=== PATIENT | female | born 1990 | race African-American/Black ===

== ENCOUNTER 2017-07-18 20:28 | Emergency (ER) | payer SELFPAY ==
[2017-07-18] MEDS ORDERED: BUTALB/ACETAMINOPHEN/CAFFEINE 1 TAB EACH PO ONE (23:08)
[2017-07-18] MEDS ORDERED: KETOROLAC TROMETHAMINE 60 MG/2 ML SDV IM ONE (23:08)
[2017-07-18] MEDS ORDERED: ONDANSETRON ODT 4 MG TAB (6 TAB/ER DISP) PO PRN (23:09)
--- NOTE | 2017-07-18 23:11 | ER Document Report ---
ED General - General Chief Complaint: Headache Stated Complaint: HEADACHE Time Seen by Provider: 07/18/17 22:57 TRAVEL OUTSIDE OF THE [place] IN LAST 30 DAYS: No - HPI Patient complains to provider of: Headache Notes: Patient coming in for a headache. Patient states left-sided headache ongoing for approximate last 12 hours similar to her migraine headaches in the past. Patient denies taking medication for headache prior to visit here to the ER. Patient denies any trauma denies any fevers chills nausea vomiting diarrhea. Patient is resting company upon my evaluation no signs of any obvious distress. - Related Data Allergies/Adverse Reactions: No Known Allergies Allergy (Verified 12/20/11 11:55) Past Medical History - Social History Smoking Status: Unknown if Ever Smoked Family History: Reviewed & Not Pertinent Patient has suicidal ideation: No Patient has homicidal ideation: No Neurological Medical History: Reports: Hx Migraine Renal/ Medical History: Denies: Hx Peritoneal Dialysis Past Surgical History: Reports: Hx Orthopedic Surgery - nose surgery - Immunizations Hx Diphtheria, Pertussis, Tetanus Vaccination: Yes Review of Systems - Review of Systems Constitutional: No symptoms reported EENT: No symptoms reported Cardiovascular: No symptoms reported Respiratory: No symptoms reported Gastrointestinal: No symptoms reported Genitourinary: No symptoms reported Female Genitourinary: No symptoms reported Musculoskeletal: No symptoms reported Skin: No symptoms reported Hematologic/Lymphatic: No symptoms reported Neurological/Psychological: Headaches -: Yes All other systems reviewed and negative Physical Exam - Vital signs Interpretation: Normal - General General appearance: Appears well, Alert - HEENT Head: Normocephalic, Atraumatic Eyes: Normal Pupils: PERRL - Respiratory Respiratory status: No respiratory distress Chest status: Nontender Breath sounds: Normal Chest palpation: Normal - Cardiovascular Rhythm: Regular Heart sounds: Normal auscultation Murmur: No - Abdominal Inspection: Normal Distension: No distension Bowel sounds: Normal Tenderness: Nontender Organomegaly: No organomegaly - Back Back: Normal, Nontender - Extremities General upper extremity: Normal inspection, Nontender, Normal color, Normal ROM , Normal temperature General lower extremity: Normal inspection, Nontender, Normal color, Normal ROM , Normal temperature, Normal weight bearing. No: Buck's sign - Neurological Neuro grossly intact: Yes Cognition: Normal Orientation: AAOx4 [place] Coma Scale Eye Opening: Spontaneous Manuel Coma Scale Verbal: Oriented [place] Coma Scale Motor: Obeys Commands [place] Coma Scale Total: 15 Speech: Normal Motor strength normal: LUE, RUE, LLE, RLE Sensory: Normal - Psychological Associated symptoms: Normal affect, Normal mood - Skin Skin Temperature: Warm Skin Moisture: Dry Skin Color: Normal Course - Re-evaluation Re-evalutation: 07/19/17 04:11 The patient presents with headache without signs of CLINICAL OPERATIONS LEADER bleed, stroke, infection , or other serious etiology. The patient is neurologically intact. Given the extremely low risk of these diagnoses further testing and evaluation for these possibilities does not appear to be indicated at this time. The patient has been instructed to return if the symptoms worsen or change in any way.. - EKG Interpretation by Ms EKG shows normal: QRS Complexes Discharge - Discharge Clinical Impression: Headache Qualifiers: Headache type: unspecified Headache chronicity pattern: unspecified pattern Intractability: not intractable Qualified Code(s): R51 - Headache Condition: Good Disposition: HOME, SELF-CARE Instructions: Anti-Inflammatory Medication ([facility]), Headache ([facility]) Additional Instructions: Your physical examination does not reveal any significant pathology for your headache. We recommend drinking plenty water to stay hydrated he may take the medication as prescribed to relieve her headache please be aware the Fioricet may make you sleepy return to ER symptoms worsen. Prescriptions: Butalb/Acetaminophen/Caffeine [Fioricet 50-300-40 mg Capsule] 1 cap PO Q6 #10 cap
== END 2017-07-18 23:37 | disposition home or self-care (01) ==
LOC: ER 20:28
DX: R51 Headache (principal)
CPT/HCPCS: 99283; 96372; J3490; J1885

== ENCOUNTER 2019-11-12 12:25 | Emergency (ER) | payer SELFPAY ==
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
--- NOTE | 2019-11-12 16:19 | EKG REPORT ---
SEVERITY:- NORMAL ECG - SINUS RHYTHM : Confirmed by: Lyubov Park MD 12-Nov-2019 16:19:04
[2019-11-12 16:48] LABS: ABSOLUTE EOSINOPHILS # (AUTO) 0.1 10^3/uL (0.0-0.6); ABSOLUTE LYMPHOCYTES (AUTO) 1.8 10^3/uL (0.5-4.7); ABSOLUTE MONOCYTES (AUTO) 0.6 10^3/uL (0.1-1.4); ABSOLUTE NEUT (AUTO) 3.8 10^3/uL (1.7-8.2); BASOPHILS % (AUTO) 0.7 % (0-2); EOSINOPHILS % (AUTO) 1.1 % (0-6); HEMOGLOBIN 10.5 g/dL (12.0-15.5); LYMPHOCYTES % (AUTO) 28.2 % (13-45); MEAN CORPUSCULAR HEMOGLOBIN 26.5 pg (27.0-33.4); MEAN CORPUSCULAR HGB CONC 32.9 g/dL (32.0-36.0); MEAN CORPUSCULAR VOLUME 81 fl (80-97); MONOCYTES % (AUTO) 9.5 % (3-13); PLATELET COUNT 213 10^3/uL (150-450); RED BLOOD COUNT 3.98 10^6/uL (3.72-5.28); RED CELL DISTRIBUTION WIDTH 16.6 % (11.5-14.0); SEGMENTED NEUTROPHILS % (AUTO) 60.5 % (42-78); TOTAL CELLS COUNTED % (AUTO) 100 %; WHITE BLOOD COUNT 6.4 10^3/uL (4.0-10.5)
[2019-11-12 17:04] LABS: ALBUMIN 4.2 g/dL (3.5-5.0); ALKALINE PHOSPHATASE 49 U/L (38-126); ANION GAP 8 (5-19); ASPARTATE AMINO TRANSFERASE 16 U/L (14-36); BILIRUBIN,DIRECT 0.1 mg/dL (0.0-0.4); BILIRUBIN,TOTAL 0.4 mg/dL (0.2-1.3); BLOOD UREA NITROGEN 9 mg/dL (7-20); CALCIUM 9.5 mg/dL (8.4-10.2); CARBON DIOXIDE 29 mmol/L (22-30); CHLORIDE 104 mmol/L (98-107); GLUCOSE 93 mg/dL (75-110); POTASSIUM 3.7 mmol/L (3.6-5.0); TOTAL PROTEIN 7.3 g/dL (6.3-8.2)
[2019-11-12 17:05] LABS: ACETAMINOPHEN < 10 ug/mL (10-30); ALCOHOL < 10 mg/dL (NONE DETECTED); SALICYLATE < 1.0 mg/dL (2.0-20.0)
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
[2019-11-12] MEDS: OLANZAPINE 5 MG TAB.RAPDIS PO SCH ×2 (20:47→21:02)
[2019-11-12] MEDS ORDERED: OLANZAPINE INJ/PF 10 MG SDV IM ONE (20:57)
[2019-11-13] MEDS ORDERED: OLANZAPINE INJ/PF 10 MG SDV IM ONE (10:05)
[2019-11-13] MEDS: OLANZAPINE 5 MG TAB.RAPDIS PO SCH (10:27)
[2019-11-13] MEDS ORDERED: DEXTROSE 5%-LACTATED RINGERS 1,000 ML IV ONE (10:42)
--- NOTE | 2019-11-13 10:44 | ER Document Report ---
Doctor's Note Notes: 11/13/19 10:43 The nursing staff reports patient has been refusing her p.o. Zyprexa Zydis. She did receive IM dose last night. At this time she is refusing to allow them to give her the IM dose. They also report that she has not urinated since she came into the room yesterday afternoon. She is completely uncooperative. She will be placed in restraints, and due to her apparently not making urine in almost 20 hours, IV fluids will be started. Yesterday she had refused a cath urine, and the patient was not allowed to go to the restroom so that we could collect a urine when she did urinate. Again, the staff reports that she has not urinated since yesterday afternoon.
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
--- NOTE | 2019-11-13 15:45 | ER Document Report ---
Doctor's Note Notes: 11/13/19 15:44 Patient no longer in restraints. Resting quietly in the room, limited interaction as patient refuses to verbalize at this time
[2019-11-13 16:13] LABS: APPEARANCE,URINE TURBID; BILIRUBIN,URINE NEGATIVE (NEGATIVE); GLUCOSE, URINE 150 mg/dL (NEGATIVE); KETONES,URINE NEGATIVE (NEGATIVE); LEUKOCYTE ESTERASE,URINE NEGATIVE (NEGATIVE); NITRITE,URINE NEGATIVE (NEGATIVE); PROTEIN,URINE 30 mg/dL (NEGATIVE); URINE SPECIFIC GRAVITY 1.017; UROBILINOGEN,URINE NEGATIVE mg/dL (<2.0)
[2019-11-13 16:20] LABS: COLOR,URINE YELLOW
[2019-11-13] MEDS: BENZTROPINE MESYLATE INJ 2 MG/2 ML AMPULE IM SCH (16:24)
[2019-11-13 16:35] LABS: URINE AMPHETAMINES SCREEN NEGATIVE; URINE BARBITURATES SCREEN NEGATIVE; URINE BENZODIAZEPINES SCREEN NEGATIVE; URINE COCAINE SCREEN NEGATIVE; URINE MARIJUANA (THC) SCREEN NEGATIVE; URINE METHADONE SCREEN NEGATIVE; URINE PHENCYCLIDINE SCREEN NEGATIVE
[2019-11-13] MEDS: HALOPERIDOL LACTATE INJ 5 MG/1 ML VIAL IM SCH (18:05)
[2019-11-14] MEDS: BENZTROPINE MESYLATE INJ 2 MG/2 ML AMPULE IM SCH (09:47)
[2019-11-14] MEDS: HALOPERIDOL LACTATE INJ 5 MG/1 ML VIAL IM SCH ×2 (09:48→18:01)
--- NOTE | 2019-11-14 12:52 | ER Document Report ---
Doctor's Note Notes: 11/14/19 12:46 Patient's vital signs, previous labs, diagnostic imaging reviewed. Reviewed mental health notes, nurses notes and previous vital signs. Patient is in no distress at this time denies any SI or HI. Labs show anemia. She denies any complaints. Has been able to urinate. Has a history of anemia. She does not follow up with a primary care for this. General: sitting at bed side Heart: RRR, no murmurs, rubs or lesions Lungs: CTABL Psych: mild delayed response, but is responding appropriately. A&P: Patient is medically cleared. Pending mental health eval
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
[2019-11-15] MEDS ORDERED: BENZTROPINE MESYLATE 1 MG TABLET PO ONE (10:34)
[2019-11-15] MEDS ORDERED: HALOPERIDOL 5 MG TABLET PO ONE ×2 (10:34→18:08)
[2019-11-15] MEDS: HALOPERIDOL LACTATE INJ 5 MG/1 ML VIAL IM SCH ×2 (10:45→18:12)
[2019-11-15] MEDS: BENZTROPINE MESYLATE INJ 2 MG/2 ML AMPULE IM SCH (10:45)
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
[2019-11-15 14:12] VITALS: BP 132/85
--- NOTE | 2019-11-15 16:18 | ER Document Report ---
Doctor's Note Notes: 11/15/19 16:18 Patient's vital signs and previous labs, diagnostic images reviewed. Reviewed mental health notes, nurse's notes and previous providers notes. VSS. Pt is in no distress at this time. Denies any SI or HI. General: A&Ox3. Answers questions appropriately. Heart: RRR Lungs: CTAB Psych: Flat affect A/P: Continue monitoring and rec's per MH. Normal diet
== END 2019-11-15 19:10 ==
LOC: ER 12:25
DX: F31.9 Bipolar disorder, unspecified (principal); F17.200 Nicotine dependence, unspecified, uncomplicated; Z78.1 Physical restraint status
CPT/HCPCS: 93005; 99285; 96372 ×2; 96360; 36415; 80307 ×4; 84703; 85025; 80053; 81001; 93010; J0515 ×2; J1630 ×2; J7121; J3490